=== PATIENT | male | born 1965 | race Caucasian/White ===

== ENCOUNTER 2017-06-02 19:09 | Observation (INO) | payer OTHER ==
[~2017-06-02] VITALS: Ht 180.3 cm; Wt 102.8 kg
[~2017-06-02 19:09] MED LIST: BLOOD PRESSURE PO; Combivent IH; Ecotrin PO; GLIPIZIDE ER2.5 MG PO; GLUCOPHAGE1000 MG PO; Glucotrol PO; Lopressor PO; Plavix PO; Zestril,Prinivil PO; Zocor PO
[2017-06-02 20:06] LABS: BASOPHIL COUNT 0.1 K/uL (0-0.1); EOSINOPHIL (%) 1.6 % (0-5); EOSINOPHIL COUNT 0.2 K/uL (0-0.3); HEMATOCRIT 45.7 % (38.0-50.0); IMMATURE GRANULOCYTE (%) 0.6 % (0.0-0.7); IMMATURE GRANULOCYTE COUNT 0.1 K/uL; INSTRUMENT ABS NEUTROPHIL CT 5.5 K/uL; LYMPHOCYTE COUNT 3.7 K/uL (1.0-2.8); MCH 31.1 PG (29.0-34.0); MCV 88.7 FL (86-99); MEAN PLAT.VOLUME 9.7 uM^3 (9.0-12.4); MONOCYTE (%) 7.4 % (3-12); MONOCYTE COUNT 0.8 K/uL (0-0.8); NEUTROPHIL (%) 53.2 % (45-76); NEUTROPHIL COUNT 5.5 K/uL (1.8-6.4); PLATELET COUNT 254 K/uL (156-360); RBC DIS.WIDTH-CV 11.9 % (11.8-14.6); RBC DIS.WIDTH-SD 38.5 % (39-53); RED BLOOD COUNT 5.15 M/uL (4.00-5.50); WHITE BLOOD COUNT 10.2 K/uL (4.1-10.2)
[2017-06-02 20:09] LABS: CARBON DIOXIDE (BICARBONATE) 30.6 MEQ/L (20-31)
[2017-06-02 20:13] LABS: D-DIMER ELISA < 150.00 ng/mLDDU (<230)
[2017-06-02 20:14] LABS: CHLORIDE 101 mEq/L (99-109); POTASSIUM 4.2 mEq/L (3.7-5.4); SODIUM 135 mEq/L (136-147)
[2017-06-02 20:17] LABS: GLUCOSE 333 mg/dL (70-99)
[2017-06-02 20:18] LABS: ANION GAP 10 MEQ/L (2-14)
[2017-06-02 20:19] LABS: TOTAL BILIRUBIN 0.3 mg/dL (0.0-1.0)
[2017-06-02 20:20] LABS: ALKALINE PHOSPHATASE 71 IU/L (3-129); GFR ESTIMATE (CALCULATED) > 59 mL/min/
[2017-06-02 20:21] LABS: UREA NITROGEN (BUN) 17 mg/dL (9-23)
[2017-06-02 20:26] LABS: TROP-I INTERPRETATION NEGATIVE; TROPONIN-I < 0.01 ng/mL (0.0-0.30)
[2017-06-02 21:34] LABS: ADD MIUA? NO; BILIRUBIN NEGATIVE; BLOOD NEGATIVE; COLOR YELLOW ((YELLOW)); GLUCOSE (STRIP) >=500; KETONES NEGATIVE; LEUKOCYTES NEGATIVE; NITRITE NEGATIVE; PROTEIN (STRIP) 30; SPECIFIC GRAVITY 1.036 (1.000-1.030); UCUL ADDED? NO; UROBILINOGEN 0.2 MG/DL (0.2-1.0)
[2017-06-03 00:53] VITALS: BP 139/82
[2017-06-03 04:15] LABS: TROP-I INTERPRETATION NEGATIVE; TROPONIN-I < 0.01 ng/mL (0.0-0.30)
[2017-06-03 04:26] VITALS: BP 127/74
[2017-06-03 08:00] LABS: POINT-OF-CARE METER ID UU13113700
[2017-06-03 08:57] VITALS: BP 125/81
[2017-06-03 09:16] LABS: TROP-I INTERPRETATION NEGATIVE; TROPONIN-I 0.02 ng/mL (0.0-0.30)
[2017-06-03 09:18] LABS: HDL CHOLESTEROL 33 MG/DL (Desirable>=40); LDL CHOLESTEROL 111 mg/dL (Desirable<100); NON-HDL CHOLESTEROL 147 mg/dL (Desirable<160); TOTAL CHOLESTEROL 180 mg/dL (Desirable<200); TRIGLYCERIDES 180 MG/DL (Normal: <150)
[2017-06-03 09:35] LABS: Estimated Average Glucose 292 mg/dL (70-123); HEMOGLOBIN A1c (GLYCOHEMOGLOB) 11.8 % HGB (Below 5.7)
[2017-06-03 11:24] VITALS: BP 102/73
[2017-06-03 11:47] LABS: POINT-OF-CARE METER ID UU13113700
[2017-06-03] MEDS ORDERED: METFORMIN HCL500 MG PO (12:03)
[2017-06-03] MEDS ORDERED: NITROSTAT0.4 MG SL (12:04)
[2017-06-03] MEDS ORDERED: LOPRESSOR25 MG PO (12:04)
[2017-06-03] MEDS ORDERED: PRAVASTATIN SOD80 MG PO (12:04)
== END 2017-06-03 15:04 | disposition home or self-care (01) ==
LOC: EME → EDBD 19:09 → EME 19:09 → EDOF 23:42 → ENRESERV 23:43 → 5WEST 06-03 00:33
PROVIDERS: Emergency Medicine; Internal Medicine
DX: R07.89 Other chest pain (principal); R94.31 Abnormal electrocardiogram [ECG] [EKG]; R06.02 Shortness of breath; R09.02 Hypoxemia; I25.10 Atherosclerotic heart disease of native coronary artery without angina pectoris; Z95.5 Presence of coronary angioplasty implant and graft; I35.8 Other nonrheumatic aortic valve disorders; E11.65 Type 2 diabetes mellitus with hyperglycemia; I10 Essential (primary) hypertension; E78.2 Mixed hyperlipidemia; E66.9 Obesity, unspecified; Z68.31 Body mass index [BMI] 31.0-31.9, adult; Z87.891 Personal history of nicotine dependence; Z82.49 Family history of ischemic heart disease and other diseases of the circulatory system; Z79.82 Long term (current) use of aspirin; Z79.84 Long term (current) use of oral hypoglycemic drugs; Z91.120 Patient's intentional underdosing of medication regimen due to financial hardship; I25.2 Old myocardial infarction; Z79.02 Long term (current) use of antithrombotics/antiplatelets; E86.0 Dehydration
CPT/HCPCS: 80053; 80061; 81003; 82010; 82803; 82948; 83036; 83880; 84484; 85025; 85379; 93005; 99281; 99285; G0378; J1650; J1815; J7030